=== PATIENT | female | born 2000 | race Caucasian/White ===

== ENCOUNTER 2021-04-12 13:24 | Emergency (ER) | payer OTHER ==
[2021-04-12] MEDS ORDERED: CYCLOBENZAPRINE5 MG PO (16:56)
[2021-04-12] MEDS ORDERED: NAPROSYN500 MG PO (16:56)
== END 2021-04-12 17:07 | disposition home or self-care (01) ==
LOC: ER1 13:24
DX: S16.1XXA Strain of muscle, fascia and tendon at neck level, initial encounter (principal); S39.012A Strain of muscle, fascia and tendon of lower back, initial encounter; S46.912A Strain of unspecified muscle, fascia and tendon at shoulder and upper arm level, left arm, initial encounter; R51.9 Headache, unspecified; E04.1 Nontoxic single thyroid nodule; V49.40XA Driver injured in collision with unspecified motor vehicles in traffic accident, initial encounter
CPT/HCPCS: 70450; 72072; 73030; 99284